=== PATIENT | female | born 1975 | race Caucasian/White ===

== ENCOUNTER → 2016-11-05 | Outpatient (CLI) | payer BC ==
[~2016-11-05] MED LIST: AMOXICILLIN875 MG PO; CLARITIN,ALAVAR10 MG PO; ENDOCET 5-3251 EACH PO; ESCITALOPRAM OX20 MG PO; LEVOTHYROXINE88 MCG PO; LEXAPRO10 MG PO; Motrin PO; NEFAZODONE HCL250 MG PO; SERZONE150 MG PO
== END | disposition home or self-care (01) ==
LOC: NUC 10-26 07:30
DX: R10.13 Epigastric pain (principal); R10.811 Right upper quadrant abdominal tenderness; K29.50 Unspecified chronic gastritis without bleeding
CPT/HCPCS: 78264; A9541